=== PATIENT | male | born 1980 | race Caucasian/White ===

== ENCOUNTER 2021-03-21 00:33 | Outpatient (CLI) | payer OTHER, SELFPAY ==
[2021-03-21 11:30] LABS: Calculated LDL 97 mg/dL (<100); Cholesterol 170 mg/dL (<200); HDL Cholesterol 59 mg/dL (40-60); TSH 2.45 uIU/mL (0.36-3.74); Triglyceride 70 mg/dL (<150)
[2021-03-21 16:17] LABS: Hemoglobin A1C 5.2 % (<5.7)
== END 2021-03-21 00:34 | disposition home or self-care (01) ==
LOC: LOS 00:33
PROVIDERS: PCP Nurse Practitioner Family; Visit Provider Nurse Practitioner Family
DX: Z13.220 Encounter for screening for lipoid disorders (principal); Z13.1 Encounter for screening for diabetes mellitus; Z13.29 Encounter for screening for other suspected endocrine disorder
CPT/HCPCS: 36415; 80061; 83036; 84443

== ENCOUNTER 2021-03-24 01:42 | Outpatient (CLI) | payer OTHER, SELFPAY ==
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
== END 2021-03-24 02:02 ==
PROVIDERS: PCP Nurse Practitioner Family; Visit Provider Nurse Practitioner Family
DX: M51.27 Other intervertebral disc displacement, lumbosacral region (principal)
CPT/HCPCS: 72110

== ENCOUNTER 2021-10-01 12:25 | Outpatient (CLI) | payer OTHER, SELFPAY ==
--- NOTE | 2021-10-01 06:00 | DI.RAD_ITS ---
Exam(s) XR PAIN CLINIC LUMBAR SP 2V EXAM: XR PAIN CLINIC LUMBAR SP 2V CLINICAL HISTORY: lumbar radiculopathy TECHNIQUE: 2D and realtime digital imaging was performed. COMPARISON: No exams were available for comparison FINDINGS: C-arm fluoroscopy was utilized by Dr. Enciso during apparent lumbar epidural injection. Hard copy show s injection at the L5-S1 level. IMPRESSION: RADIATION DOSE DELIVERED: Kobyr=4.64 mGy
[2021-10-01 12:35] VITALS: BP 124/73; PULSE 73; RESP 16; TEMP 37.1; O2SAT 99
[2021-10-01] MEDS: Omnipaque 240 MG/ML 50 ML BTL IJ (13:00)
[2021-10-01] MEDS: methylPREDNISolone ACETATE 80 MG/ML VIAL IJ (13:00)
--- NOTE | 2021-10-01 13:03 | PDOC.PAIN_ITS ---
Pain Clinic Procedure Note Procedure Note Procedure Note: Lumbar Epidural Steroid Injection Procedure Note COMMENTS:I previously evaluated the patient on 07/31/21. His pain VAS today is 6/10. Dx: Lumbosacral radiculopathy Spencer Randhawa has been referred to the [facility] for lumbar epidural steroid injection. The patient was greeted by the nurse who verified patients name and . Patient was then taken to the fluoroscopy suite. The patient was interviewed and the medial record reviewed. There were no medical, pharmacologic, radiographic, or other structural contraindications to attempting fluoroscopically guided lumbar epidural steroid injection. Risks and expected side effects as well as potential benefits of the procedure were reviewed and voiced concerns expressed. The patient consent form was signed and witnessed. Standard patient time-out procedure was performed. The patient was placed in the prone position on the fluoroscopy table and automated blood pressure cuff and pulse oximeter applied. The skin entry point for entering/approaching the epidural space at L5-S1 and marked. Following thorough chlorhexadine preparation of the skin and draping and 1% lidocaine infiltration of the skin entry point and subcutaneous tissues, a 18 gauge Touhy needle was placed under fluoroscopic guidance and with loss of resistance technique into the epidural space. Needle tip placement and depth were aided and confirmed by fluoroscopy. There was no paresthesia or return of blood or CSF through the needle. 1 cc's of Omnipaque 240 was injected with clear epidural spread confirmed with fluoroscopy. 80mg depomedrol was injected. There was not any unusual discomfort expressed by Spencer Randhawa. Patient's vital signs were stable throughout the procedure and were as recorded in nursing records. Follow up plans and appointments were discussed with patient. Post procedure instruction was given as documented in nursing records and having met discharge criteria and was discharged from the [facility]. COMMENTS: If this procedure is helpful, it can be completed up to 3 times per 12 months. Post-procedure pain VAS= 4/10. Spencer Enciso DO, MPH [employer] [facility] [employer]-Pain Management [facility]
[2021-10-01 13:11] VITALS: BP 129/76; PULSE 91; RESP 14; O2SAT 100
== END 2021-10-01 12:26 | disposition home or self-care (01) ==
LOC: PC 12:25
PROVIDERS: PCP Nurse Practitioner Family; Visit Provider Preventive Medicine Occupational Medicine
DX: M54.17 Radiculopathy, lumbosacral region (principal)
CPT/HCPCS: 62323; 72100; J1040; Q9967

== ENCOUNTER → 2023-05-26 02:16 | Outpatient (CLI) | payer OTHER, SELFPAY ==
--- NOTE | 2023-05-26 12:45 | DI.MRI_ITS ---
Exam(s) MR LUMBAR SPINE WO EXAM: MR LUMBAR SPINE WO CLINICAL HISTORY: LUMBAR RADICULITIS,M54.16. TECHNIQUE: Multiplanar multisequence MRI of the Lumbar spine was performed. COMPARISON: CR XR LUMBAR SPINE COMPLETE from 03/24/2021 FINDINGS: Bones: The last intervertebral disc space is designated the L5/S1 level for the numbering purpose of this ex amination. The vertebral body heights are well maintained. Alignment: Unremarkable. Marrow: Diffuse red marrow reconversion. No suspicious focal lesions. Cord: The conus tip ends at the T12 level. It is of normal size and signal intensity. T12-L1: No focal disc herniation is present. No central spinal canal stenosis.No neural foraminal st enosis. L1-2: No focal disc herniation is present. No central spinal canal stenosis.No neural foraminal sten osis. L2-3: No focal disc herniation is present. No central spinal canal stenosis.No neural foraminal malou nosis. L3-4: No focal disc herniation is present. No central spinal canal stenosis.No neural foraminal malou nosis. L4-5: No focal disc herniation is present. No central spinal canal stenosis.No neural foraminal sten osis. L5-S1: Minimal disc no focal disc herniation is present. No central spinal canal stenosis.No neur al foraminal stenosis. The visualized SI joints and sacrum are well maintained. Soft tissues: The paraspinal soft tissues are unremarkable. IMPRESSION: Minimal disc bulging at L5-S1. No evidence of disc herniation, significant spinal stenosis or neurof oraminal narrowing. Red marrow reconversion. Findings could be associated with anemia. Clinical correlation recommended . DATA REPOSITORY:
== END ==
PROVIDERS: PCP Nurse Practitioner Family; Visit Provider Nurse Practitioner Family
DX: M54.16 Radiculopathy, lumbar region (principal); M51.27 Other intervertebral disc displacement, lumbosacral region
CPT/HCPCS: 72148

== ENCOUNTER 2023-09-23 08:45 | Outpatient (CLI) | payer OTHER, SELFPAY ==
[2023-09-23 08:53] VITALS: BP 118/95; PULSE 102; RESP 18; TEMP 37.2
--- NOTE | 2023-09-23 09:15 | DI.RAD_ITS ---
Exam(s) XR PAIN CLINIC LUMBAR SP 2V EXAM: XR PAIN CLINIC LUMBAR SP 2V CLINICAL HISTORY: Dx: Lumbar Radiculopathy TECHNIQUE: 2D and realtime digital imaging was performed. CONTRAST MATERIAL: Refer to procedure report. COMPARISON: No exams were available for comparison FINDINGS: Fluoroscopy was provided for Dr. Enciso during the performance of a lumbar epidural steroid injection. Please refer to the procedure report for complete details. Ka,r=3.72 mGy IMPRESSION: RADIATION DOSE DELIVERED: 0.0 0.0 0
[2023-09-23 09:28] VITALS: BP 127/94; PULSE 99; RESP 13; O2SAT 97
[2023-09-23] MEDS: Omnipaque 240 MG/ML 50 ML BTL IJ (09:31)
[2023-09-23] MEDS: Epidural Tray 1 EACH MC (09:31)
[2023-09-23] MEDS: methylPREDNISolone ACETATE 80 MG/ML VIAL IJ (09:32)
[2023-09-23] MEDS: Lidocaine 1% Pres-Free 5 ML VIAL IJ (09:32)
--- NOTE | 2023-09-23 09:32 | PDOC.PAIN ---
Date of service: 09/23/23 Time of Service: 09:32 Pain Managment Procedure Note Procedure Note Procedure Note: PROCEDURE NOTE LUMBAR EPIDURAL STEROID INJECTION Date of Service: September 23, 2023 Patient:Spencer Borden? Provider: Spencer Enciso DO, MPH Spencer Randhawa has been referred to the [facility] for a lumbar epidural steroid injection. Pre-operative diagnosis: Lumbosacral Radiculopathy Post-operative diagnosis: Same Pre-Procedure Pain: VAS= 5 /10 Comments: He had about 21 months of >50% pain relief from his last LESI on 10/01/2021. This pain has gradually returned. Spencer was interviewed and the medical record was reviewed.? There were no medical, pharmacologic, radiographic or other structural contraindications to attempting fluoroscopically guided Lumbar epidural steroid injection.? Risks, potential side effects, indications, and potential benefits of the procedure were reviewed with Spencer.? Questions and concerns were addressed.? After it was clear that Spencer was fully informed about the procedure, the printed consent form was signed by the patient and myself.? Spencer was placed in the prone position on the fluoroscopy table and automated blood pressure cuff and pulse oximeter applied. The skin entry point for entering/approaching the epidural space for the lumbar epidural steroid injection was marked. Following thorough chlorhexadine preparation of the skin and draping and 1% lidocaine infiltration of the skin entry point and subcutaneous tissues, an 18 gauge Touhy needle was placed and advanced under fluoroscopic guidance and with loss of resistance technique into the L5-S1 epidural space. Needle tip placement and depth were aided and confirmed by fluoroscopy. There was no paresthesia or return of blood or CSF through the needle. 1 mls of Omnipaque 240 was injected with clear epidural spread confirmed with fluoroscopy. 80 mg of Depo-Medrol was? injected. This was followed by 1 ml of preservative-free normal saline to flush the steroid out of the needle. There was no unusual discomfort expressed by Spencer. The needle was withdrawn without difficulty. (49 mls of Omnipaque was wasted) Spencer was observed and was without hemodynamic, neurologic, or allergic reactions.? Fluoroscopic images were digitally archived. Spencer's vital signs were stable throughout the procedure and were as recorded in nursing records. Follow up plans and appointments were discussed with Spencer. Post procedure instruction was given as documented in nursing records and having met discharge criteria Spencer was discharged from the Pain Management Center. COMMENTS: No apparent complications. Post-procedure pain: VAS= 1/10. Spencer to contact [facility] as needed. If at least 50% improvement in pain and/or function for at least 3 months is achieved, this procedure can be repeated. I personally performed this entire procedure. SPENCER ENCISO DO, MPH ABPMR-subspecialty board certification in Pain Medicine [facility] Management
== END 2023-09-23 08:46 | disposition home or self-care (01) ==
LOC: PC 08:45
PROVIDERS: PCP Nurse Practitioner Family; Visit Provider Preventive Medicine Occupational Medicine
DX: M54.17 Radiculopathy, lumbosacral region (principal)
CPT/HCPCS: 00123; 62323; 72100; J1040; J2003; Q9967